=== PATIENT | female | born 1980 | race Caucasian/White ===

== ENCOUNTER 2020-02-20 12:06 | Emergency (ER) | payer MEDICAID ==
[~2020-02-20 12:06] MED LIST: BACTRIM DS1 TAB OR; BACTRIM DS1 TAB PO; CEPH500C57 OR; CORTISPORIN OTI10 M2 AD; DOXYCYC MONO100 MG OR; LOPRESSOR12.5 MG PO; LORTAB 10 OR; NAPROSYN500 MG PO; PREVACID30 M3 PO; SMZ-TMP DS1 TAB PO; ULTRAM50 MG PO; ZOLENE HC AD; no home meds
[2020-02-20] MEDS ORDERED: CEPHALEXIN500 M1 PO (12:36)
[2020-02-20 13:15] VITALS: BP 162/111
== END 2020-02-20 13:15 | disposition home or self-care (01) ==
LOC: ED 12:06
DX: L03.116 Cellulitis of left lower limb (principal); L03.115 Cellulitis of right lower limb; F17.210 Nicotine dependence, cigarettes, uncomplicated

== ENCOUNTER 2020-08-25 15:54 | Emergency (ER) | payer MEDICAID ==
[~2020-08-25] VITALS: Ht 160 cm; Wt 61.0 kg
[~2020-08-25 15:54] MED LIST changes: +CEPHALEXIN500 M1 PO
[2020-08-25 17:13] LABS: HEMATOCRIT 38.2 % (37.0-47.0); HEMOGLOBIN 12.2 g/dl (12.0-16.0); IMMATURE GRANULOCYTES 0.4 % (0.0-5.0); MEAN CELL VOLUME 91.2 fL CALC (80.0-100.0); MEAN CORPUSCULAR HGB 29.1 pG CALC (26.0-32.0); MEAN CORPUSCULAR HGB CONC 31.9 g/dL CAL (32.0-36.0); NEUT# 7.38 thou/uL (2.00-7.15); RED BLOOD COUNT 4.19 mill/uL (4.20-5.60); RED CELL DISTRI WIDTH 12.7 % (11.5-15.5)
[2020-08-25 17:31] LABS: URINE BILIRUBIN - DIPSTICK NEGATIVE (NEGATIVE); URINE BLOOD DIPSTICK LARGE (NEGATIVE); URINE CLARITY SL CLOUDY; URINE COLOR YELLOW; URINE GLUCOSE - DIPSTICK NEGATIVE (NEGATIVE); URINE KETONE NEGATIVE (NEGATIVE); URINE LEUK ESTERASE NEGATIVE (Negative); URINE NITRITE - DIPSTICK POSITIVE (Negative); URINE PROTEIN - DIPSTICK 30 mg/dL (NEG-TRACE); URINE UROBILINOGEN - DIPSTICK 0.2 E.U./dL (0.2)
[2020-08-25 17:35] LABS: ALKALINE PHOSPHATASE 57 u/l (38-126); ANION GAP 11 (6-22 (CALC)); BILIRUBIN, TOTAL 0.3 mg/dL (0.0-1.4); BUN 11 mg/dL (7-17); BUN/CREATININE RATIO 15 (12-20 (CALC)); CARBON DIOXIDE 28 mmol/l (22-30); CHLORIDE 102 mmol/l (95-108); CREATININE 0.7 mg/dL (0.5-1.0); GFR > 60 ML/MIN (>=60 (CALC)); GFR FOR AFR.AMER. > 60 ML/MIN (>=60 (CALC)); POTASSIUM 3.6 mmol/l (3.5-5.1); SGOT/AST 22 u/l (14-36); SODIUM 137 mmol/l (137-146); TOTAL PROTEIN 7.3 g/dL (6.3-8.2)
[2020-08-25 17:42] LABS: URINE BACTERIA MANY hpf; URINE RBC 25-50 RBC/hpf (0-5); URINE SQUAMOUS EPITHELIAL CELL FEW EPI/hpf (0-FEW)
[2020-08-25] MEDS ORDERED: KEFLEX500 M1 PO (18:48)
[2020-08-25] MEDS ORDERED: LORTAB 7.57.5 MG PO (18:48)
[2020-08-25 20:32] VITALS: BP 160/94
== END 2020-08-25 20:32 | disposition left against medical advice (07) ==
LOC: ED 15:54
DX: L03.213 Periorbital cellulitis (principal); T15.01XA Foreign body in cornea, right eye, initial encounter; N39.0 Urinary tract infection, site not specified; F17.210 Nicotine dependence, cigarettes, uncomplicated; X58.XXXA Exposure to other specified factors, initial encounter; Z91.19 Patient's noncompliance with other medical treatment and regimen
CPT/HCPCS: Q9967